=== PATIENT | female | born 1955 | race Caucasian/White ===

== ENCOUNTER 2016-11-16 22:49 | Emergency (ER) | payer OTHER ==
[~2016-11-16] VITALS: Ht 170.2 cm; Wt 92.1 kg
[~2016-11-16 22:49] MED LIST: ATARAX,VISTARIL50 MG PO; BUSPAR10 MG PO; BUSPAR5 MG PO; CELEXA20 MG PO; CELEXA40 MG PO; COLACE100 MG PO; CYMBALTA60 MG PO; DESYREL100 MG PO; DESYREL150 MG PO; FLEXERIL10 MG PO; LAMICTAL100 MG PO; LAMICTAL200 MG PO; LATUDA40 MG PO; LaMICtal PO; MOBIC7.5 MG PO; MOTRIN800 MG PO; NAPROSYN500 MG PO; NEURONTIN; NEURONTIN300 MG PO; NEURONTIN600 MG PO; Naprosyn PO; PHENERGAN IM; PROTONIX40 MG PO; PROZAC PO; PROZAC40 MG PO; PROzac PO; RANITIDINE HCL150 M1 PO; SAPHRIS10 MG SL; SEROQUEL50 MG PO; TEGRETOL200 MG PO; TRAMADOL HCL50 MG PO; TRAZADONE PO; TRAZODONE HCL150 MG PO; TRAZODONE PO; ULTRAM50 MG PO; VALIUM10 MG PO; VISTARIL50 MG PO; ZANTAC150 M1 PO; ZANTAC150 MG PO
[2016-11-16 23:40] LABS: CHLORIDE 106 mEq/L (99-109); POTASSIUM 3.6 mEq/L (3.7-5.4); SODIUM 139 mEq/L (136-147)
[2016-11-16 23:41] LABS: HEMATOCRIT 41.5 % (36.0-46.0); MCH 32.1 PG (29.0-34.0); MCHC 35.2 G/DL (30.0-36.0); MCV 91.2 FL (83-99); MEAN PLAT.VOLUME 9.2 uM^3 (9.5-12.4); PLATELET COUNT 229 K/uL (156-360); RBC DIS.WIDTH-CV 12.7 % (11.8-14.6); RBC DIS.WIDTH-SD 41.9 % (39-53); RED BLOOD COUNT 4.55 M/uL (3.80-5.20); WHITE BLOOD COUNT 5.2 K/uL (4.1-10.2)
[2016-11-16 23:42] LABS: GLUCOSE 102 mg/dL (70-99)
[2016-11-16 23:43] LABS: ANION GAP 12 MEQ/L (2-14)
[2016-11-16 23:46] LABS: GFR ESTIMATE (CALCULATED) > 59 mL/min/
[2016-11-16 23:47] LABS: UREA NITROGEN (BUN) 8 mg/dL (9-23)
[2016-11-16 23:53] LABS: TROP-I INTERPRETATION NEGATIVE; TROPONIN-I < 0.01 ng/mL (0.0-0.30)
[2016-11-17 03:24] LABS: TROP-I INTERPRETATION NEGATIVE; TROPONIN-I < 0.01 ng/mL (0.0-0.30)
[2016-11-17 04:02] VITALS: BP 129/75
== END 2016-11-17 04:02 | disposition home or self-care (01) ==
LOC: EME 22:49
PROVIDERS: Emergency Medicine
DX: R07.9 Chest pain, unspecified (principal); I10 Essential (primary) hypertension; E86.0 Dehydration; F17.200 Nicotine dependence, unspecified, uncomplicated
CPT/HCPCS: 71020; 80048; 84484; 85027; 93005; 99281; 99285; J1885

== ENCOUNTER 2017-04-08 19:48 | Emergency (ER) | payer OTHER ==
[~2017-04-08] VITALS: Ht 170.2 cm; Wt 87.1 kg
[2017-04-08 21:46] VITALS: BP 144/86
[2017-04-08] MEDS ORDERED: NORCO 5/3251 TABLET PO (22:05)
[2017-04-08] MEDS ORDERED: MOTRIN600 MG PO (22:05)
== END 2017-04-08 22:25 | disposition home or self-care (01) ==
LOC: EME 19:48
DX: M23.92 Unspecified internal derangement of left knee (principal); M23.91 Unspecified internal derangement of right knee; W18.30XA Fall on same level, unspecified, initial encounter; K21.9 Gastro-esophageal reflux disease without esophagitis; I10 Essential (primary) hypertension; F17.200 Nicotine dependence, unspecified, uncomplicated
CPT/HCPCS: 73564; 99281; 99284